=== PATIENT | female | born 1975 | race Caucasian/White ===

== ENCOUNTER → 2016-08-03 | Outpatient (CLI) | payer OTHER ==
[~2016-08-03] MED LIST: ABILIFY10 MG PO; ABILIFY15 MG PO; ACIDOPHILUS1 EAC4 PO; ADDERALL30 MG PO; AMOXICILLIN875 MG PO; ASPIR 8181 M1 PO; AUGMENTIN875 MG PO; BRINTELLIX10 MG PO; CALCIUM500 M4 PO; CIPRO500 MG PO; CLARITIN10 M3 PO; COUMADIN5 MG PO; COUMADIN7.5 MG PO; CRANBERRY400 M1 PO; CYANOCOBALAM1000 MCG PO; CYMBALTA60 MG PO; Coumadin,Jantoven PO; DOXYCYCLINE HY100 MG PO; DURAGESIC50 MCG TD; ENDOCET 5-3251 EACH PO; FLAGYL500 MG PO; FLEXERIL10 MG PO; FLONASE16 G1 BOTH NARES; GABAPENTIN400 MG PO; GLIMEPIRIDE1 MG PO; IBUPROFEN800 MG PO; INDOCIN25 MG PO; JUNEL FE 1/21 TABLET PO; LAB; LASIX40 MG PO; LISINOPRIL20 MG PO; LOVENOX150 MG/1 M SC; LYRICA50 MG PO; LYRICA75 MG PO; METFORMIN HCL500 MG PO; MORPHINE SULFAT45 MG PO; MS CONTIN,ORAMO30 MG PO; NAPROXEN500 MG PO; NEURONTIN400 MG PO; NITROFURANTOIN100 MG PO; NORCO 5/3251 TABLET PO; OXYBUTYNIN CHLOR5 MG PO; OXYCODONE HCL30 MG PO; PRAVASTATIN SOD10 MG PO; PREDNISONE50 MG PO; Proventil,Ventolin H IH; ROXICODONE30 MG PO; SIMVASTATIN10 MG PO; VALIUM10 MG PO; VITAMIN D1000 UNIT PO; XANAX1 MG PO; ZOFRAN ODT4 MG PO; ZOFRAN4 MG PO; ZYRTEC10 M3 PO
== END | disposition home or self-care (01) ==
LOC: NUC 08:00
DX: E04.9 Nontoxic goiter, unspecified (principal); R94.6 Abnormal results of thyroid function studies
CPT/HCPCS: 78014; 78999; A9512; A9531